=== PATIENT | male | born 1975 | race Caucasian/White ===

== ENCOUNTER → 2024-03-15 08:11 | Outpatient (REF) | payer MEDICARE, BC, SELFPAY | LOC: HWRAD 08:11 | PROVIDERS: ATTENDING PHYSICIAN Internal Medicine | DX: M79.605 Pain in left leg (principal) | CPT/HCPCS: 73590 ==

== ENCOUNTER → 2025-02-13 15:09 | Outpatient (REF) | payer MEDICARE, BC, SELFPAY | LOC: DHSLP 15:09 | PROVIDERS: ATTENDING PHYSICIAN Internal Medicine; FAMILY PHYSICIAN Internal Medicine | DX: G47.33 Obstructive sleep apnea (adult) (pediatric) (principal) | CPT/HCPCS: 95800 ==

== ENCOUNTER → 2025-08-04 07:51 | Outpatient (REF) | payer MEDICARE, BC, SELFPAY | LOC: RAD 07:51 | PROVIDERS: ATTENDING PHYSICIAN Internal Medicine Gastroenterology; FAMILY PHYSICIAN Internal Medicine | DX: K50.10 Crohn's disease of large intestine without complications (principal); K50.913 Crohn's disease, unspecified, with fistula; K60.30 Anal fistula, unspecified | CPT/HCPCS: 74177; Q9967 ==